=== PATIENT | female | born 1970 | race Caucasian/White ===

== ENCOUNTER → 2023-05-26 08:35 | Outpatient (REF) | payer MEDICARE, OTHER, SELFPAY | LOC: HWRAD 08:35 | PROVIDERS: ATTENDING PHYSICIAN Surgery; FAMILY PHYSICIAN Physician Assistant Medical | DX: R10.32 Left lower quadrant pain (principal) | CPT/HCPCS: 74177; Q9967 ==

== ENCOUNTER → 2024-03-30 10:37 | Outpatient (REF) | payer MEDICARE, OTHER, SELFPAY | LOC: HWWDC 10:37 | PROVIDERS: ATTENDING PHYSICIAN Physician Assistant Medical | DX: Z12.31 Encounter for screening mammogram for malignant neoplasm of breast (principal) | CPT/HCPCS: 77063; 77067 ==

== ENCOUNTER → 2024-04-06 08:46 | Outpatient (REF) | payer MEDICARE, OTHER, SELFPAY | LOC: WDC 08:46 | PROVIDERS: ATTENDING PHYSICIAN Physician Assistant Medical | DX: R92.8 Other abnormal and inconclusive findings on diagnostic imaging of breast (principal) | CPT/HCPCS: 76642 ==

== ENCOUNTER 2024-05-09 23:03 | Emergency (ER) | payer MEDICARE, OTHER, SELFPAY ==
[2024-05-09 23:23] VITALS: BP 114/78
--- NOTE | 2024-05-10 00:27 | ED.GENMED ---
History of Present Illness
General
Chief Complaint: Self Inflicted Injury
Source: patient
Exam Limitations: none
Time Seen by Provider: 05/10/24 00:11
Nursing documentation reviewed up to this point in time: agreed with
History of Present Illness
History of Present Illness:
53-year-old female with a history of anxiety and depression and self cutting behavior remotely presents for self-inflicted wound to her left elbow region with a razor tonight when she became overwhelmed. Patient says she feels better when she cuts
but has not done in a while. She has had some significant depression and anxiety but says she does not want to kill herself. She does see a therapist and a psychiatrist. She is on medications. She is not hallucinating and denies any drugs or
alcohol. Patient is agreeable to talking to crisis but she does not feel like she needs inpatient treatment currently. This is the first wound that she has required sutures for.
Tetanus shot is up-to-date, the arm otherwise is normal for her, no c/o numbness or dec ROM
Past History
Past History
ED Past Medical History: HTN, Hypothyroidism, Psychiatric (Depression, PTSD, mood disorder) and Other (Migraines)
ED Past Surgical History: Gynecological
Social History
Tobacco: Smoker
Alcohol: None
Drug: None
Personal: Single
Living: with family
Employment: Employed
Family History
Family History: Other
Review of Systems
Review of Systems
Allergies reviewed?: Yes
All Other Systems: Not applicable
Phy Exam
Physical Exam
Physical Exam:
GENERAL: Alert , in no apparent distress
EYE: pupils equal and reactive
NECK: Supple
ENT: o/p clr, mmm.
CARDIAC: Regular rate and rhythm .
LUNGS: Clear breath sounds bilaterally, no acute respiratory distress, no wheezes/rales/rhonchi
ABDOMEN: Soft, without focal tenderness, no r/g, no cvat, normal bowel sounds
NEUROLOGICAL: Alert and oriented, no focal neuro deficits
SKIN: Warm and dry, laceration L elbow region approx 3 cm slightly gaping, not deep, just subcutanous
MUSCULOSKELETAL: No edema, well perfused. neg nazario's sign
PSYCH: Normal and appropriate interaction.
Course
Orders/Labs/Results
Orders:
Orders
05/10/24 00:26
Crisis Consult Urgent
Reason for Consult: depression
Vital Signs
Initial and Last Documented VS:
Initial Vital Signs
Temp Pulse Resp BP Pulse Ox
36.6 C 70 20 114/78 96
05/09/24 23:23 05/09/24 23:23 05/09/24 23:23 05/09/24 23:23 05/09/24 23:23
Last Documented Vital Signs
Temp Pulse Resp BP Pulse Ox
36.6 C 65 18 130/72 95
05/09/24 23:23 05/10/24 01:41 05/10/24 01:41 05/10/24 01:41 05/10/24 01:41
Procedures
Laceration Closure
Left Lateral Elbow:
Status of Wound: clean
Size of Wound in cm: 3.5
Description of Wound Edges: sharp
Preparation: cleaned with saline
Anesthesia: 1% Lidocaine with epi
Revision/Debridement: routine- no revision
Type of Closure: single layer closure
Skin Closure Material: 4-0 nylon
Number of sutures: 4
MDM/Problems Addressed
Differential Diagnosis Includes:
cutting, laceration
MDM/Problems Addressed:
53 y/o F with self inflicted wound left elbow during anxiety episode today
no suicidal thoughts
tetanus UTD
wound is 3.5 cm and requires sutures
otherwise intact exam
taerful but communicative
spoke with crisis and clearned
d/c home
*Critical Care Note
Total Time (30-74mins, 75-104mins- exclusive of procedures): Not Applicable
ED Attending Note
-
Portions of this chart may have been created with voice recognition software.� Occasional wrong word or��sound alike� substitutions may have occurred due to the inherent limitations of voice recognition software.
Discharge Plan
Departure
Patient Disposition: Home (Routine Discharge)
Date of Disposition: 05/10/24
Time of Disposition: 01:21
Patient with high blood pressure during this ER visit?: No
Condition: Fair
Discharge Problem:
self inflicted laceration
Instructions: Anxiety, Adult (DC), Laceration Repair With Stitches (DC)
Prescriptions:
No Action
levothyroxine 175 MCG tablet
175 mcg PO DAILY
amlodipine 10 MG tablet
10 mg PO HS
plecanatide [Trulance] 3 MG tablet
3 mg PO DAILY AT 0700
ondansetron [Zofran ODT] 8 MG tablet,disintegrating
8 mg PO TID PRN (Reason: nausea/vomiting) Qty: 20 0RF
pantoprazole 40 MG tablet,delayed release (DR/EC)
40 mg PO BID Qty: 20 0RF
ibuprofen 600 mg tablet
600 mg PO Q6H PRN (Reason: Pain) Qty: 20 0RF
diazepam [Valium] 2 mg tablet
2 mg PO TID PRN (Reason: muscle spasm) Qty: 10 0RF
Referrals:
Soila Díaz PA-C [Family Provider] - Tomorrow
Activity Restrictions/Additional Instructions:
KEEP THE WOUND CLEAN AND DRY FOR 24 HOURS
AFTER THAT YOU CAN GET IT WET IN THE BATH/SHOWER ONCE A DAY AND MAKE SURE IT IS CLEAN AND THERE IS NO DRIED BLOOD ON THE STITCHES
APPLY NEOSPORIN AND A BANDAID
THE STITCHES NEED TO BE REMOVED IN ABOUT 7-10 DAYS, SEE YOUR DOCTOR FOR THIS.
THE LAST DAY BEFORE STITCHES OUT, NO OINTMENT, LEAVE OPEN TO AIR
WATCH FOR SIGNS OF INFECTION AND RETURN NEEDED FOR PAIN, SWELLING, REDNESS, DRAINAGE, BLEEDING.
MOTRIN NEEDED FOR PAIN.
Make sure to follow-up with your psychiatrist
Interventions
Interventions:
*Risk Screen - Suicide Last Done: 05/09/24 23:23
*General Assessment Last Done: 05/10/24 01:42
*Neglect/Abuse Screening Last Done: 05/09/24 23:23
ED- Fall Risk Assessment Last Done: 05/10/24 01:42
*ED COVID-19 Vaccine History Last Done: 05/10/24 01:42
*Nursing Disposition Last Done: 05/10/24 01:42
ED-Suicide Risk Assessment Last Done: 05/10/24 00:32
ED-Psychological Assessment Last Done: 05/10/24 00:32
ED-Skin Assessment Last Done: 05/10/24 00:32
Discharge Date and Time
Discharge Date/Time: 05/10/24 01:42
Print Language: MOZAMB[place]
[2024-05-10 01:41] VITALS: BP 130/72
== END 2024-05-10 01:42 | disposition home or self-care (01) ==
LOC: EMR 23:03
PROVIDERS: EMERGENCY PHYSICIAN Emergency Medicine; FAMILY PHYSICIAN Physician Assistant Medical
DX: S51.012A Laceration without foreign body of left elbow, initial encounter (principal); X78.8XXA Intentional self-harm by other sharp object, initial encounter; E03.9 Hypothyroidism, unspecified; I10 Essential (primary) hypertension; F17.200 Nicotine dependence, unspecified, uncomplicated; F32.A Depression, unspecified; F41.9 Anxiety disorder, unspecified; Z91.52 Personal history of nonsuicidal self-harm
CPT/HCPCS: 12002; 99283

== ENCOUNTER 2024-06-25 13:47 | Emergency (ER) | payer MEDICARE, OTHER, SELFPAY ==
[2024-06-25 13:49] VITALS: BP 133/82
--- NOTE | 2024-06-25 14:18 | ED.GENMED ---
History of Present Illness
General
Chief Complaint: Eye Problems
Time Seen by Provider: 06/25/24 14:01
History of Present Illness
History of Present Illness:
53-year-old female presents the emergency department for evaluation of right upper eyelid redness for the past 2 days. Saw her eye doctor yesterday and was started on oral doxycycline. She is concerned that her vision is somewhat blurry. She
wears glasses, no contacts. Denies any fevers or chills. No diplopia
Past History
Past History
ED Past Medical History: HTN, Hypothyroidism, Psychiatric (Depression, PTSD, mood disorder) and Other (Migraines)
ED Past Surgical History: Gynecological
Social History
Tobacco: Smoker
Alcohol: None
Drug: None
Personal: Single
Living: with family
Employment: Employed
Family History
Family History: Other
Review of Systems
Review of Systems
Allergies reviewed?: Yes
All Other Systems: ROS reviewed and negative except as documented in HPI and ROS
Phy Exam
Physical Exam
Physical Exam:
GEN: Well appearing, NAD, WDWN
HEENT: Oral mucosa moist, no scleral icterus. Mild right upper eyelid erythema with a central internal hordeolum, normal extraocular motions with no deficit no diplopia, no preauricular adenopathy bilaterally, no conjunctival injection. Visual
acuity OS 20/40, OD 20/40, OU 20/40
Cardiac: Regular rate
Lung: No respiratory distress, no tachypnea
MSK: No gross deformity or injuries
Skin: Good color, no pallor or jaundice, no rashes
Neuro: AO x3, moves all extremities freely
Psych: Calm, cooperative
Course
Vital Signs
Initial and Last Documented VS:
Initial Vital Signs
Temp Pulse Resp BP Pulse Ox
98.2 F 73 16 133/82 98
06/25/24 13:49 06/25/24 13:49 06/25/24 13:49 06/25/24 13:49 06/25/24 13:49
Last Documented Vital Signs
Temp Pulse Resp BP Pulse Ox
98.2 F 73 16 133/82 98
06/25/24 13:49 06/25/24 13:49 06/25/24 13:49 06/25/24 13:49 06/25/24 13:49
MDM/Problems Addressed
MDM/Problems Addressed:
Will add topical antibiotics, recommend warm compresses, at this time no evidence for postseptal cellulitis, likely blepharitis due to internal hordeolum, recommend continued ophthalmology follow-up
*Critical Care Note
Total Time (30-74mins, 75-104mins- exclusive of procedures): Not Applicable
ED Attending Note
-
Portions of this chart may have been created with voice recognition software.� Occasional wrong word or��sound alike� substitutions may have occurred due to the inherent limitations of voice recognition software.
Discharge Plan
Departure
Patient Disposition: Home (Routine Discharge)
Date of Disposition: 06/25/24
Time of Disposition: 14:20
Patient with high blood pressure during this ER visit?: No
Discharge Problem:
Blepharitis
Instructions: Blepharitis
Prescriptions:
New
erythromycin 5 mg/gram (0.5 %) ointment
0.5 inch ophthalmic (eye) TID 5 Days Qty: 3.5 0RF
No Action
levothyroxine 175 MCG tablet
175 mcg PO DAILY
amlodipine 10 MG tablet
10 mg PO HS
plecanatide [Trulance] 3 MG tablet
3 mg PO DAILY AT 0700
ondansetron [Zofran ODT] 8 MG tablet,disintegrating
8 mg PO TID PRN (Reason: nausea/vomiting) Qty: 20 0RF
pantoprazole 40 MG tablet,delayed release (DR/EC)
40 mg PO BID Qty: 20 0RF
ibuprofen 600 mg tablet
600 mg PO Q6H PRN (Reason: Pain) Qty: 20 0RF
diazepam [Valium] 2 mg tablet
2 mg PO TID PRN (Reason: muscle spasm) Qty: 10 0RF
Referrals:
Soila Díaz PA-C [Family Provider] -
Activity Restrictions/Additional Instructions:
Return to the ER if you develop double vision or severe eye pain
Interventions
Interventions:
*Risk Screen - Suicide Last Done: 06/25/24 13:49
*General Assessment Last Done: 06/25/24 14:08
*Neglect/Abuse Screening Last Done: 06/25/24 13:49
*ED- Fall Risk Assessment Last Done: 06/25/24 14:08
*Nursing Disposition Last Done: 06/25/24 14:28
Discharge Date and Time
Discharge Date/Time: 06/25/24 14:28
Print Language: [place]
== END 2024-06-25 14:28 | disposition home or self-care (01) ==
LOC: EMR 13:47
PROVIDERS: EMERGENCY PHYSICIAN Student in an Organized Health Care Education/Training Program; FAMILY PHYSICIAN Physician Assistant Medical
DX: H01.001 Unspecified blepharitis right upper eyelid (principal); E03.9 Hypothyroidism, unspecified; I10 Essential (primary) hypertension; F17.200 Nicotine dependence, unspecified, uncomplicated
CPT/HCPCS: 99283

== ENCOUNTER → 2024-06-30 14:45 | Outpatient (REF) | payer MEDICARE, OTHER, SELFPAY | LOC: WDC 14:45 | PROVIDERS: ATTENDING PHYSICIAN Physician Assistant Medical | DX: R92.8 Other abnormal and inconclusive findings on diagnostic imaging of breast (principal) | CPT/HCPCS: 76642 ==

== ENCOUNTER → 2024-07-22 09:57 | Outpatient (REF) | payer MEDICARE, OTHER, SELFPAY | LOC: PAVMRI 09:57 | PROVIDERS: ATTENDING PHYSICIAN Nurse Practitioner Adult Health; FAMILY PHYSICIAN Physician Assistant Medical | DX: G43.009 Migraine without aura, not intractable, without status migrainosus (principal); R25.9 Unspecified abnormal involuntary movements | CPT/HCPCS: 70553; A9575 ==

== ENCOUNTER → 2024-07-30 19:17 | Outpatient (REF) | payer MEDICARE, OTHER, SELFPAY | LOC: MRI 3T 19:17 | PROVIDERS: ATTENDING PHYSICIAN Nurse Practitioner Family; FAMILY PHYSICIAN Physician Assistant Medical | DX: E23.7 Disorder of pituitary gland, unspecified (principal) | CPT/HCPCS: 70553; A9575 ==

== ENCOUNTER 2024-08-26 09:32 | Day surgery (SDC) | payer MEDICARE, OTHER, SELFPAY | END 2024-08-26 10:14 | disposition home or self-care (01) | LOC: GI 09:32 | PROVIDERS: ATTENDING PHYSICIAN Internal Medicine | DX: Z12.11 Encounter for screening for malignant neoplasm of colon (principal); K64.9 Unspecified hemorrhoids; K57.30 Diverticulosis of large intestine without perforation or abscess without bleeding; D12.3 Benign neoplasm of transverse colon; D12.0 Benign neoplasm of cecum; D12.2 Benign neoplasm of ascending colon; D12.4 Benign neoplasm of descending colon; D12.8 Benign neoplasm of rectum; Z86.0101 Personal history of adenomatous and serrated colon polyps | CPT/HCPCS: 45385; 88305 ==

== ENCOUNTER → 2024-10-22 13:15 | Outpatient (REF) | payer MEDICARE, OTHER, SELFPAY | LOC: HWRAD 13:15 | PROVIDERS: ATTENDING PHYSICIAN Physician Assistant Medical | DX: Z87.891 Personal history of nicotine dependence (principal); G47.33 Obstructive sleep apnea (adult) (pediatric); M25.562 Pain in left knee; M25.561 Pain in right knee | CPT/HCPCS: 71271; 73564 ==